=== PATIENT | male | born 1950 | race Two or more races ===

== ENCOUNTER → 2017-03-26 07:00 | Outpatient (CLI) | payer OTHER | END | disposition home or self-care (01) | LOC: LAB 07:00 | DX: D69.49 Other primary thrombocytopenia (principal); D50.0 Iron deficiency anemia secondary to blood loss (chronic); D63.8 Anemia in other chronic diseases classified elsewhere; K70.30 Alcoholic cirrhosis of liver without ascites; K76.1 Chronic passive congestion of liver; K74.69 Other cirrhosis of liver; K70.9 Alcoholic liver disease, unspecified; D73.2 Chronic congestive splenomegaly; I10 Essential (primary) hypertension; E08.42 Diabetes mellitus due to underlying condition with diabetic polyneuropathy; E08.319 Diabetes mellitus due to underlying condition with unspecified diabetic retinopathy without macular edema; K62.89 Other specified diseases of anus and rectum; K62.6 Ulcer of anus and rectum; D50.8 Other iron deficiency anemias; D51.8 Other vitamin B12 deficiency anemias; D68.8 Other specified coagulation defects; E72.20 Disorder of urea cycle metabolism, unspecified ==

== ENCOUNTER → 2017-07-23 11:12 | Outpatient (CLI) | payer OTHER | END | disposition home or self-care (01) | LOC: LAB 11:12 | DX: D69.49 Other primary thrombocytopenia (principal); D50.0 Iron deficiency anemia secondary to blood loss (chronic); K70.30 Alcoholic cirrhosis of liver without ascites; K76.1 Chronic passive congestion of liver; K74.69 Other cirrhosis of liver; K70.9 Alcoholic liver disease, unspecified; D73.2 Chronic congestive splenomegaly; I10 Essential (primary) hypertension; E08.42 Diabetes mellitus due to underlying condition with diabetic polyneuropathy; E08.319 Diabetes mellitus due to underlying condition with unspecified diabetic retinopathy without macular edema; K62.89 Other specified diseases of anus and rectum; K62.6 Ulcer of anus and rectum; D63.8 Anemia in other chronic diseases classified elsewhere; D51.1 Vitamin B12 deficiency anemia due to selective vitamin B12 malabsorption with proteinuria; D50.8 Other iron deficiency anemias; D51.8 Other vitamin B12 deficiency anemias; D68.8 Other specified coagulation defects; R97.0 Elevated carcinoembryonic antigen [CEA]; R97.8 Other abnormal tumor markers; E72.29 Other disorders of urea cycle metabolism ==

== ENCOUNTER 2017-08-08 08:58 | Outpatient (CLI) | payer OTHER | END 2017-08-08 09:06 | disposition home or self-care (01) | LOC: NUCLEAR 08:58 | DX: D69.49 Other primary thrombocytopenia (principal); D50.0 Iron deficiency anemia secondary to blood loss (chronic); K70.30 Alcoholic cirrhosis of liver without ascites; K76.1 Chronic passive congestion of liver; D73.2 Chronic congestive splenomegaly; I10 Essential (primary) hypertension; E08.42 Diabetes mellitus due to underlying condition with diabetic polyneuropathy; E08.319 Diabetes mellitus due to underlying condition with unspecified diabetic retinopathy without macular edema; K62.89 Other specified diseases of anus and rectum; K62.6 Ulcer of anus and rectum; E72.20 Disorder of urea cycle metabolism, unspecified; D63.8 Anemia in other chronic diseases classified elsewhere; D51.1 Vitamin B12 deficiency anemia due to selective vitamin B12 malabsorption with proteinuria | CPT/HCPCS: 78816; A9552 ==

== ENCOUNTER 2018-01-10 21:20 | Emergency (ER) | payer OTHER ==
[~2018-01-10] VITALS: Ht 182.9 cm; Wt 59.0 kg
[2018-01-11] MEDS ORDERED: DUI500 PO (01:20)
== END 2018-01-11 01:21 ==
LOC: ER 21:20
DX: S01.82XA Laceration with foreign body of other part of head, initial encounter (principal); R55 Syncope and collapse; W18.09XA Striking against other object with subsequent fall, initial encounter; Y93.89 Activity, other specified; Y92.512 Supermarket, store or market as the place of occurrence of the external cause; Y99.8 Other external cause status

== ENCOUNTER → 2018-01-15 | Outpatient (CLI) | payer OTHER ==
[~2018-01-15] MED LIST: DUI500 PO
== END | disposition home or self-care (01) ==
LOC: LAB 11:08
DX: D69.49 Other primary thrombocytopenia (principal); D50.0 Iron deficiency anemia secondary to blood loss (chronic); K70.30 Alcoholic cirrhosis of liver without ascites; K76.1 Chronic passive congestion of liver; K70.9 Alcoholic liver disease, unspecified; D73.2 Chronic congestive splenomegaly; I10 Essential (primary) hypertension; E08.42 Diabetes mellitus due to underlying condition with diabetic polyneuropathy; K62.89 Other specified diseases of anus and rectum; E08.319 Diabetes mellitus due to underlying condition with unspecified diabetic retinopathy without macular edema; K62.6 Ulcer of anus and rectum; E72.29 Other disorders of urea cycle metabolism; D63.8 Anemia in other chronic diseases classified elsewhere; D51.1 Vitamin B12 deficiency anemia due to selective vitamin B12 malabsorption with proteinuria; D50.8 Other iron deficiency anemias; E03.8 Other specified hypothyroidism; R97.0 Elevated carcinoembryonic antigen [CEA]

== ENCOUNTER 2018-01-21 13:43 | Emergency (ER) | payer OTHER ==
[~2018-01-21] VITALS: Ht 182.9 cm; Wt 95.3 kg
== END 2018-01-21 15:33 | disposition home or self-care (01) ==
LOC: ER 13:43
DX: Z48.02 Encounter for removal of sutures (principal)

== ENCOUNTER 2018-03-26 12:42 | Outpatient (CLI) | payer OTHER ==
[~2018-03-26 12:42] MED LIST changes: +GABAPENTIN400 MG; +LANTUS SOL100 UNIT/1
== END 2018-03-26 13:40 | disposition home or self-care (01) ==
LOC: LAB 12:42
DX: D69.49 Other primary thrombocytopenia (principal); D50.0 Iron deficiency anemia secondary to blood loss (chronic); K76.2 Central hemorrhagic necrosis of liver; K74.69 Other cirrhosis of liver; K70.9 Alcoholic liver disease, unspecified; D73.2 Chronic congestive splenomegaly; I10 Essential (primary) hypertension; E08.42 Diabetes mellitus due to underlying condition with diabetic polyneuropathy; E08.319 Diabetes mellitus due to underlying condition with unspecified diabetic retinopathy without macular edema; K62.89 Other specified diseases of anus and rectum; K62.6 Ulcer of anus and rectum; E72.20 Disorder of urea cycle metabolism, unspecified; D63.8 Anemia in other chronic diseases classified elsewhere; D51.1 Vitamin B12 deficiency anemia due to selective vitamin B12 malabsorption with proteinuria; D50.8 Other iron deficiency anemias; D51.8 Other vitamin B12 deficiency anemias; E03.8 Other specified hypothyroidism; D68.8 Other specified coagulation defects; R97.0 Elevated carcinoembryonic antigen [CEA]; R97.8 Other abnormal tumor markers

== ENCOUNTER → 2018-08-27 13:03 | Outpatient (CLI) | payer OTHER | END | disposition home or self-care (01) | LOC: LAB 13:03 | DX: E03.8 Other specified hypothyroidism (principal); D69.49 Other primary thrombocytopenia; D50.0 Iron deficiency anemia secondary to blood loss (chronic); K70.30 Alcoholic cirrhosis of liver without ascites; K76.1 Chronic passive congestion of liver; K70.9 Alcoholic liver disease, unspecified; D73.2 Chronic congestive splenomegaly; I10 Essential (primary) hypertension; K62.89 Other specified diseases of anus and rectum; D63.8 Anemia in other chronic diseases classified elsewhere; D51.8 Other vitamin B12 deficiency anemias; R97.8 Other abnormal tumor markers; E08.42 Diabetes mellitus due to underlying condition with diabetic polyneuropathy; K62.6 Ulcer of anus and rectum; D51.1 Vitamin B12 deficiency anemia due to selective vitamin B12 malabsorption with proteinuria; E08.319 Diabetes mellitus due to underlying condition with unspecified diabetic retinopathy without macular edema; E72.20 Disorder of urea cycle metabolism, unspecified; C25.9 Malignant neoplasm of pancreas, unspecified; R97.0 Elevated carcinoembryonic antigen [CEA] ==

== ENCOUNTER 2020-10-20 18:40 | Emergency (ER) | payer OTHER ==
[~2020-10-20] VITALS: Ht 182.9 cm; Wt 96.2 kg
[2020-10-20] MEDS ORDERED: AMOX-CLAV 500-1 EACH PO (20:52)
[2020-10-20] MEDS ORDERED: INTESTINEX680 M1 PO (20:52)
== END 2020-10-20 21:44 ==
LOC: ER 18:40
DX: S61.224A Laceration with foreign body of right ring finger without damage to nail, initial encounter (principal); W45.8XXA Other foreign body or object entering through skin, initial encounter; Y93.89 Activity, other specified; Y92.090 Kitchen in other non-institutional residence as the place of occurrence of the external cause; Y99.8 Other external cause status

== ENCOUNTER → 2022-04-17 06:21 | Outpatient (CLI) | payer OTHER ==
[~2022-04-17 06:21] MED LIST changes: +AMOX-CLAV 500-1 EACH PO; +INTESTINEX680 M1 PO
== END | disposition home or self-care (01) ==
LOC: LAB 06:21
PROVIDERS: ATTEND Internal Medicine Hematology & Oncology
DX: D50.8 Other iron deficiency anemias (principal); R79.9 Abnormal finding of blood chemistry, unspecified; I10 Essential (primary) hypertension; R74.02 Elevation of levels of lactic acid dehydrogenase [LDH]; K76.89 Other specified diseases of liver; E03.8 Other specified hypothyroidism; D68.8 Other specified coagulation defects; D69.1 Qualitative platelet defects; C25.9 Malignant neoplasm of pancreas, unspecified; R97.8 Other abnormal tumor markers; R97.0 Elevated carcinoembryonic antigen [CEA]; R77.2 Abnormality of alphafetoprotein; E56.1 Deficiency of vitamin K; D69.49 Other primary thrombocytopenia; D50.0 Iron deficiency anemia secondary to blood loss (chronic); K70.30 Alcoholic cirrhosis of liver without ascites; K76.1 Chronic passive congestion of liver; K70.9 Alcoholic liver disease, unspecified; D73.2 Chronic congestive splenomegaly; E08.42 Diabetes mellitus due to underlying condition with diabetic polyneuropathy; K62.89 Other specified diseases of anus and rectum; K62.6 Ulcer of anus and rectum; D63.8 Anemia in other chronic diseases classified elsewhere; D51.1 Vitamin B12 deficiency anemia due to selective vitamin B12 malabsorption with proteinuria

== ENCOUNTER 2022-10-14 21:11 | Emergency (ER) | payer OTHER ==
[~2022-10-14] VITALS: Ht 182.9 cm; Wt 99.8 kg
== END 2022-10-15 16:03 | disposition home or self-care (01) ==
LOC: ER 21:11
DX: S00.83XA Contusion of other part of head, initial encounter (principal); W18.39XA Other fall on same level, initial encounter; Y93.89 Activity, other specified; Y92.018 Other place in single-family (private) house as the place of occurrence of the external cause; S50.11XA Contusion of right forearm, initial encounter; Z91.013 Allergy to seafood; I25.10 Atherosclerotic heart disease of native coronary artery without angina pectoris; E78.00 Pure hypercholesterolemia, unspecified; I10 Essential (primary) hypertension

== ENCOUNTER 2022-10-31 09:45 | Inpatient (IN) | payer OTHER ==
[~2022-10-31] VITALS: Ht 175.3 cm; Wt 90.7 kg
[2022-11-01] MEDS ORDERED: OXYBUTYNIN CHLOR5 MG (11:38)
[2022-11-01] MEDS ORDERED: INTEGRA CAPSUL1 EACH (11:38)
[2022-11-01] MEDS ORDERED: PRE PROTEIN1 EACH (11:38)
[2022-11-01] MEDS ORDERED: METOPROLOL TAR100 MG (11:38)
[2022-11-01] MEDS ORDERED: OMEPRAZOLE20 MG (11:38)
== END 2022-11-07 17:11 | disposition home or self-care (01) | DRG 433 ==
LOC: ER 09:45 → SEC-K 23:53 → SURG 11-01 17:06 → ICU-2 11-01 19:17 → SEC-K 11-03 12:26 → O/R 11-03 12:39 → SEC-K 11-03 12:40 → MEDI 11-03 13:33
PROVIDERS: Emergency Medicine; ADMIT Internal Medicine; ATTEND Internal Medicine
PROC: BW21YZZ Computerized Tomography (CT Scan) of Abdomen and Pelvis using Other Contrast (ICD-10-PCS; 2022-10-31)
PROC: B24BZZZ Ultrasonography of Heart with Aorta (ICD-10-PCS; 2022-11-01)
PROC: 0W9G3ZZ Drainage of Peritoneal Cavity, Percutaneous Approach (ICD-10-PCS; principal; 2022-11-02)
PROC: 30233N1 Transfusion of Nonautologous Red Blood Cells into Peripheral Vein, Percutaneous Approach (ICD-10-PCS; 2022-11-03)
PROC: 02HV33Z Insertion of Infusion Device into Superior Vena Cava, Percutaneous Approach (ICD-10-PCS; 2022-11-04)
PROC: 4A12X4Z Monitoring of Cardiac Electrical Activity, External Approach (ICD-10-PCS; 2022-11-04)
DX: K70.31 Alcoholic cirrhosis of liver with ascites (principal); K76.6 Portal hypertension; K92.1 Melena; E86.0 Dehydration; K42.9 Umbilical hernia without obstruction or gangrene; D64.9 Anemia, unspecified; I11.0 Hypertensive heart disease with heart failure; I50.9 Heart failure, unspecified; E11.9 Type 2 diabetes mellitus without complications; Z79.4 Long term (current) use of insulin; F10.20 Alcohol dependence, uncomplicated

== ENCOUNTER 2022-12-14 09:53 | Emergency (ER) | payer OTHER ==
[~2022-12-14] VITALS: Ht 182.9 cm; Wt 99.8 kg
[~2022-12-14 09:53] MED LIST changes: +INTEGRA CAPSUL1 EACH; +METOPROLOL TAR100 MG; +OMEPRAZOLE20 MG; +OXYBUTYNIN CHLOR5 MG; +PRE PROTEIN1 EACH
[2022-12-14 11:29] LABS: HEMATOCRIT 31.7 % (39.0-48.0); MEAN CELL VOLUME 87.3 fL (80.0-100.00); MEAN CORPUSCULAR HEMOGLOBIN 30.4 pg (27.00-32.0); MEAN CORPUSCULAR HGB CONC 34.8 g/dl (32.0-36.0); RED BLOOD COUNT 3.63 M/uL (4.00-6.00); RED CELL DISTRIBUTION WIDTH 15.1 % (11.5-14.5)
[2022-12-14 11:35] LABS: PLATELET COUNT 75 K/uL (150-450)
[2022-12-14 11:56] LABS: ALBUMIN 2.4 gm/dL (3.4-5.0); BILIRUBIN TOTAL 1.04 mg/dL (0.3-1.2); CALCIUM 7.7 mg/dL (8.5-10.1); CREATININE SERUM 1.26 mg/dL (0.70-1.30); GFR 55.94; GLOBULINA 3.2 G/DL (2.4-3.5); POTASSIUM 3.42 mEq/L (3.5-5.1); TOTAL PROTEIN 5.6 gm/dL (6.4-8.2)
[2022-12-14 12:29] LABS: URINE APPEARANCE Clear; URINE BILIRRUBIN Negative (NEGATIVE); URINE BLOOD Negative; URINE COLOR Yellow; URINE GLUCOSE Negative (NEGATIVE); URINE LEUKOCYTE Trace; URINE NITRATE Negative; URINE PROTEIN Negative (NEGATIVE); URINE UROBILINOGEN 0.2 E.U./dl
[2022-12-14 12:33] LABS: URINE BACTERIA 22.6 uL (0.0-1933); URINE EPITHELIAL CELLS 2.9 uL (0.0-38.8); URINE WBC 6.9 uL (0.0-23.2)
[2022-12-14 13:00] LABS: URINE RBC 1.4 uL (0.0-20.8)
== END 2022-12-14 14:25 | disposition home or self-care (01) ==
LOC: ER 09:53
PROVIDERS: Emergency Medicine
DX: R18.8 Other ascites (principal); Z91.013 Allergy to seafood; D73.2 Chronic congestive splenomegaly
CPT/HCPCS: 36415; 71045; 76700; 99284; J1940